=== PATIENT | male | born 1985 | race African-American/Black ===

== ENCOUNTER 2020-12-16 11:32 | Inpatient (IN) | payer MEDICAID, OTHER ==
[~2020-12-16] VITALS: Ht 175.3 cm; Wt 113.5 kg
[2020-12-16 12:44] LABS: HEMATOCRIT. 46.4 % (42.0-52.0); HEMOGLOBIN. 14.7 g/dL (14.0-18.0); MEAN CORPUSCULAR HEMOGLOBIN 23.9 pg (28.0-32.0); MEAN CORPUSCULAR VOLUME 75.4 fL (80.0-94.0); PLATELET 107 x1000/uL (130-400); RED BLOOD CELL COUNT 6.16 mill/uL (4.7-6.1); RED CELL DISTRIBUTION WIDTH 15.9 % (11.6-14.6)
[2020-12-16 13:22] LABS: PLATELET ESTIMATE SLIGHTLY DECREASED
[2020-12-16 15:09] LABS: CHLORIDE 110 mEq/L (98-107)
[2020-12-16] MEDS ORDERED: DEXTROSE 50% WATER 50ML SYRINGE IV ONE (15:30)
[2020-12-16] MEDS ORDERED: INSULIN REGULAR (HUMULIN R) 300UNITS/3ML VIAL IV ONE (15:30)
[2020-12-16] MEDS ORDERED: ZOLPIDEM TARTRATE 5MG TABLET PO PRN (16:30)
[2020-12-16] MEDS ORDERED: GUAIFENESIN 200MG/10ML SUGAR FREE UDC PO PRN (16:30)
[2020-12-16] MEDS ORDERED: ONDANSETRON HCL 4MG/2ML INJ IV PRN (16:30)
[2020-12-16] MEDS ORDERED: DOCUSATE SODIUM 100MG CAPSULE PO PRN (16:30)
[2020-12-16] MEDS ORDERED: IPRATROPIUM/ALBUTEROL 0.5-3(2.5)MG/3ML NEB NEB PRN (16:30)
[2020-12-16] MEDS ORDERED: LORAZEPAM 2MG/ML CPJ IV PRN (16:30)
[2020-12-16] MEDS ORDERED: MAGNESIUM/ALUMINUM HYDROXIDE/SIMETHICONE 30ML UDC PO PRN (16:30)
[2020-12-16] MEDS ORDERED: CLONIDINE 0.1MG TABLET PO PRN (16:30)
[2020-12-16] MEDS ORDERED: NITROGLYCERIN 0.4MG TABLET SL SL PRN (16:30)
[2020-12-16] MEDS: SODIUM CHLORIDE 0.9% 1,000 ML IV SCH (17:14)
[2020-12-16 20:19] LABS: CREATINE KINASE MB FRACTION 30.3 ng/mL (0.5-3.6)
[2020-12-16 20:27] LABS: FOLIC ACID (FOLATE) SERUM 13.4 ng/mL (>5.38)
[2020-12-16] MEDS ORDERED: SODIUM BICARBONATE 8.4% 1 MEQ/ML 50ML SYR IV NR (21:00)
[2020-12-16] MEDS: LEVETIRACETAM 500MG TABLET PO SCH (23:07)
[2020-12-16] MEDS: FAMOTIDINE 20MG TABLET PO SCH (23:07)
[2020-12-16] MEDS: ENOXAPARIN 40MG/0.4ML SYR SUBCUT SCH (23:09)
[2020-12-17 01:30] VITALS: BP 145/88
[2020-12-17] MEDS ORDERED: MIRT-118 PO (03:41)
[2020-12-17 04:00] VITALS: BP 154/87
[2020-12-17] MEDS: SODIUM CHLORIDE 0.9% 1,000 ML IV SCH ×2 (04:54→12:11)
[2020-12-17] MEDS: DILTIAZEM HCL 60MG TABLET PO SCH ×3 (06:18→17:15)
[2020-12-17 06:56] LABS: HEMATOCRIT. 43.4 % (42.0-52.0); HEMOGLOBIN. 13.8 g/dL (14.0-18.0); MEAN CORPUSCULAR HEMOGLOBIN 23.7 pg (28.0-32.0); MEAN CORPUSCULAR VOLUME 74.5 fL (80.0-94.0); MEAN PLATELET VOLUME 9.7 fl (7.4-10.4); PLATELET 87 x1000/uL (130-400); RED BLOOD CELL COUNT 5.82 mill/uL (4.7-6.1); RED CELL DISTRIBUTION WIDTH 15.6 % (11.6-14.6)
[2020-12-17 07:02] LABS: CLARITY URINE CLEAR (CLEAR); COLOR URINE YELLOW (YELLOW); KETONES URINE 1+ (NEGATIVE); LEUKOCYTE ESTERASE URINE NEGATIVE (NEGATIVE); NITRITE URINE NEGATIVE (NEGATIVE); OCCULT BLOOD URINE 3+ (NEGATIVE); PH URINE 5.5 (4.5-8.0); PROTEIN URINE 2+ (NEGATIVE); SPECIFIC GRAVITY URINE 1.023 (1.005-1.030); UROBILINOGEN URINE 0.2 E.U./dL (0.2-1.0)
[2020-12-17 07:37] LABS: CHLORIDE 115 mEq/L (98-107)
[2020-12-17 07:45] LABS: PHOSPHORUS 5.5 mg/dL (2.5-4.9)
[2020-12-17 07:50] LABS: CREATINE KINASE MB FRACTION 69.8 ng/mL (0.5-3.6)
[2020-12-17 08:00] VITALS: BP 141/94
[2020-12-17 08:18] LABS: CREATINE KINASE 9205 IU/L (39-308)
[2020-12-17 08:42] LABS: *AMPHETAMINES SCREEN URINE NEGATIVE (NEGATIVE); *BARBITURATES SCREEN URINE NEGATIVE (NEGATIVE); *BENZODIAZEPINES SCREEN URINE NEGATIVE (NEGATIVE); *COCAINE SCREEN URINE NEGATIVE (NEGATIVE)
[2020-12-17 08:43] LABS: CANNABINOID URINE SCREEN NEGATIVE (NEGATIVE); METHADONE URINE SCREEN NEGATIVE (NEGATIVE); OPIATES URINE SCREEN NEGATIVE (NEGATIVE); PHENCYCLIDINE URINE SCREEN NEGATIVE (NEGATIVE)
[2020-12-17] MEDS: CITRIC ACID/SODIUM CITRATE SOLN 15ML UDC PO SCH ×3 (10:05→17:15)
[2020-12-17] MEDS: LEVETIRACETAM 500MG TABLET PO SCH ×2 (10:06→21:51)
[2020-12-17 12:43] VITALS: BP 143/92
[2020-12-17 16:13] LABS: PLATELET ESTIMATE DECREASED
[2020-12-17 16:24] VITALS: BP 140/90
[2020-12-17 16:58] LABS: BG CARBOXYHEMOGLOBIN 0.5 % (0.5-1.5); BG DEOXYHEMOGLOBIN 3.4 % (0.0-5.0); BG FRACTION INSPIRED OXYGEN 21; BG HCO3 ACT 25.3 mmol/L (22.0-26.0); BG METHEMOGLOBIN 0.5 % (0.0-1.5); BG OXYGEN SATURATION 96.6 % (92.0-98.5); BG OXYHEMOGLOBIN 95.6 % (94.0-97.0); BG PCO2 35.4 mmHg (35.0-45.0); BG PH 7.472 (7.350-7.450); BG PO2 88.3 mmHg (75.0-100.0); BG SAMPLE SITE RIGHT RADIAL; BG TOTAL HEMOGLOBIN 14.4 g/dL (12.0-18.0); BG VENT MODE ROOM AIR
[2020-12-17] MEDS: SODIUM CHLORIDE 0.45% 1,000 ML IV SCH (17:15)
[2020-12-17 20:00] VITALS: BP 102/44
[2020-12-17] MEDS: ENOXAPARIN 40MG/0.4ML SYR SUBCUT SCH (21:00)
[2020-12-17] MEDS: FAMOTIDINE 20MG TABLET PO SCH (21:51)
[2020-12-18] VITALS: BP 107/54
[2020-12-18 04:00] VITALS: BP 110/51
[2020-12-18] MEDS: SODIUM CHLORIDE 0.45% 1,000 ML IV SCH ×2 (05:57→09:00)
[2020-12-18] MEDS: DILTIAZEM HCL 60MG TABLET PO SCH ×4 (05:57→18:48)
[2020-12-18 06:47] LABS: HEMOGLOBIN. 13.5 g/dL (14.0-18.0); MEAN CORPUSCULAR HEMOGLOBIN 23.5 pg (28.0-32.0); MEAN PLATELET VOLUME 9.5 fl (7.4-10.4); PLATELET 83 x1000/uL (130-400); RED BLOOD CELL COUNT 5.74 mill/uL (4.7-6.1); RED CELL DISTRIBUTION WIDTH 15.8 % (11.6-14.6)
[2020-12-18 07:12] LABS: CHLORIDE 118 mEq/L (98-107)
[2020-12-18 07:27] LABS: PHOSPHORUS 3.3 mg/dL (2.5-4.9)
[2020-12-18 08:00] VITALS: BP 123/82
[2020-12-18] MEDS: LEVETIRACETAM 500MG TABLET PO SCH ×2 (08:59→21:44)
[2020-12-18] MEDS: CITRIC ACID/SODIUM CITRATE SOLN 15ML UDC PO SCH (08:59)
[2020-12-18 12:00] VITALS: BP 121/60
[2020-12-18 12:40] LABS: CREATINE KINASE 32783 IU/L (39-308)
[2020-12-18] MEDS: DEXTROSE 5% WATER 1,000 ML IV SCH ×2 (13:02→21:30)
[2020-12-18 16:00] VITALS: BP 128/59
[2020-12-18 17:56] LABS: PLATELET ESTIMATE DECREASED
[2020-12-18 20:00] VITALS: BP 142/85
[2020-12-18] MEDS: ENOXAPARIN 40MG/0.4ML SYR SUBCUT SCH (21:00)
[2020-12-18] MEDS: FAMOTIDINE 20MG TABLET PO SCH (21:45)
[2020-12-19] VITALS: BP 135/73
[2020-12-19 04:00] VITALS: BP 133/75
[2020-12-19] MEDS: DEXTROSE 5% WATER 1,000 ML IV SCH ×2 (04:01→19:10)
[2020-12-19] MEDS: DILTIAZEM HCL 60MG TABLET PO SCH ×4 (06:41→19:11)
[2020-12-19 08:00] VITALS: BP 105/57
[2020-12-19 08:19] LABS: BASOPHILS % 0.3 % (0.0-2.0); EOSINOPHILS % 0.2 % (0.0-5.0); HEMATOCRIT. 41.2 % (42.0-52.0); LYMPHOCYTES % 9.8 % (20.0-50.0); MEAN CORPUSCULAR HEMOGLOBIN 23.7 pg (28.0-32.0); MEAN CORPUSCULAR VOLUME 75.2 fL (80.0-94.0); MEAN PLATELET VOLUME 10.3 fl (7.4-10.4); NEUTROPHILS % 77.7 % (40.0-76.0); PLATELET 75 x1000/uL (130-400); RED BLOOD CELL COUNT 5.48 mill/uL (4.7-6.1); RED CELL DISTRIBUTION WIDTH 15.8 % (11.6-14.6)
[2020-12-19 08:29] LABS: CHLORIDE 114 mEq/L (98-107)
[2020-12-19 08:37] LABS: PHOSPHORUS 3.1 mg/dL (2.5-4.9)
[2020-12-19] MEDS: LEVETIRACETAM 500MG TABLET PO SCH ×2 (09:15→21:42)
[2020-12-19 09:31] LABS: CREATINE KINASE 31193 IU/L (39-308)
[2020-12-19 12:00] VITALS: BP 112/62
[2020-12-19 16:00] VITALS: BP 120/63
[2020-12-19] MEDS: ARIPIPRAZOLE 2MG TABLET PO SCH (16:13)
[2020-12-19] MEDS: SERTRALINE HCL 25MG TABLET PO SCH (16:13)
[2020-12-19] MEDS: POLYVINYL ALCOHOL OPHTH DROPS 15ML BOTHEYE SCH (16:13)
[2020-12-19 20:00] VITALS: BP 111/54
[2020-12-19] MEDS: ENOXAPARIN 40MG/0.4ML SYR SUBCUT SCH (21:00)
[2020-12-19] MEDS: FAMOTIDINE 20MG TABLET PO SCH (21:42)
[2020-12-20] VITALS: BP 97/47
[2020-12-20] MEDS: DEXTROSE 5% WATER 1,000 ML IV SCH ×3 (02:45→23:27)
[2020-12-20 04:00] VITALS: BP 109/64
[2020-12-20] MEDS: DILTIAZEM HCL 60MG TABLET PO SCH ×5 (05:33→23:29)
[2020-12-20 08:00] VITALS: BP 124/63
[2020-12-20 08:51] LABS: BASOPHILS % 0.2 % (0.0-2.0); EOSINOPHILS % 0.6 % (0.0-5.0); HEMATOCRIT. 39.2 % (42.0-52.0); HEMOGLOBIN. 12.4 g/dL (14.0-18.0); LYMPHOCYTES % 10.6 % (20.0-50.0); MEAN CORPUSCULAR HEMOGLOBIN 23.7 pg (28.0-32.0); MEAN CORPUSCULAR VOLUME 74.6 fL (80.0-94.0); MEAN PLATELET VOLUME 10.4 fl (7.4-10.4); MONOCYTES % 11.1 % (2.0-8.0); NEUTROPHILS % 77.5 % (40.0-76.0); PLATELET 73 x1000/uL (130-400); RED BLOOD CELL COUNT 5.25 mill/uL (4.7-6.1); RED CELL DISTRIBUTION WIDTH 15.5 % (11.6-14.6)
[2020-12-20 09:15] LABS: CHLORIDE 107 mEq/L (98-107)
[2020-12-20] MEDS: LEVETIRACETAM 500MG TABLET PO SCH ×2 (09:33→21:27)
[2020-12-20] MEDS: SERTRALINE HCL 25MG TABLET PO SCH (09:33)
[2020-12-20] MEDS: ARIPIPRAZOLE 2MG TABLET PO SCH (09:33)
[2020-12-20] MEDS: POLYVINYL ALCOHOL OPHTH DROPS 15ML BOTHEYE SCH ×3 (09:34→18:05)
[2020-12-20 09:42] LABS: PHOSPHORUS 3.7 mg/dL (2.5-4.9)
[2020-12-20 12:00] VITALS: BP 135/61
[2020-12-20 13:47] LABS: CREATINE KINASE 22242 IU/L (39-308)
[2020-12-20 16:00] VITALS: BP 109/62
[2020-12-20] MEDS: ACETAMINOPHEN 325MG TABLET PO PRN (16:16)
[2020-12-20 20:00] VITALS: BP 106/68
[2020-12-20] MEDS: ENOXAPARIN 40MG/0.4ML SYR SUBCUT SCH (21:00)
[2020-12-20] MEDS: FAMOTIDINE 20MG TABLET PO SCH (21:27)
[2020-12-21] VITALS: BP 108/63
[2020-12-21 04:00] VITALS: BP 120/80
[2020-12-21] MEDS: DILTIAZEM HCL 60MG TABLET PO SCH ×3 (05:14→17:12)
[2020-12-21 07:59] LABS: CHLORIDE 106 mEq/L (98-107)
[2020-12-21 08:00] VITALS: BP 120/67
[2020-12-21 08:11] LABS: BASOPHILS % 0.3 % (0.0-2.0); HEMATOCRIT. 39.7 % (42.0-52.0); HEMOGLOBIN. 12.5 g/dL (14.0-18.0); LYMPHOCYTES % 11.5 % (20.0-50.0); MEAN CORPUSCULAR HEMOGLOBIN 23.3 pg (28.0-32.0); MEAN CORPUSCULAR VOLUME 74.3 fL (80.0-94.0); NEUTROPHILS % 80.2 % (40.0-76.0); RED BLOOD CELL COUNT 5.34 mill/uL (4.7-6.1); RED CELL DISTRIBUTION WIDTH 15.1 % (11.6-14.6)
[2020-12-21] MEDS: SERTRALINE HCL 25MG TABLET PO SCH (08:54)
[2020-12-21] MEDS: ARIPIPRAZOLE 2MG TABLET PO SCH (08:54)
[2020-12-21] MEDS: LEVETIRACETAM 500MG TABLET PO SCH ×2 (08:54→21:06)
[2020-12-21] MEDS: POLYVINYL ALCOHOL OPHTH DROPS 15ML BOTHEYE SCH ×3 (08:54→16:08)
[2020-12-21] MEDS: DEXTROSE 5% WATER 1,000 ML IV SCH (08:55)
[2020-12-21] MEDS: ACETAMINOPHEN 325MG TABLET PO PRN ×2 (09:52→16:59)
[2020-12-21 12:00] VITALS: BP 109/51
[2020-12-21 12:12] LABS: CLARITY URINE CLEAR (CLEAR); COLOR URINE DARK YELLOW (YELLOW); KETONES URINE NEGATIVE (NEGATIVE); LEUKOCYTE ESTERASE URINE TRACE (NEGATIVE); NITRITE URINE NEGATIVE (NEGATIVE); OCCULT BLOOD URINE 2+ (NEGATIVE); PROTEIN URINE 2+ (NEGATIVE); SPECIFIC GRAVITY URINE 1.031 (1.005-1.030)
[2020-12-21 13:48] LABS: MEAN PLATELET VOLUME 9.8 fl (7.4-10.4); PLATELET 77 x1000/uL (130-400)
[2020-12-21 16:00] VITALS: BP 114/79
[2020-12-21 20:00] VITALS: BP 122/76
[2020-12-21] MEDS ORDERED: VANCOMYCIN 2,000 MG in DEXT 5% WATER 500 ML IV NR (20:00)
[2020-12-21] MEDS: PIPERACILLIN/TAZOBACTAM 3.375 G in DEXTROSE 5% WATER 50 ML IV SCH (20:38)
[2020-12-21] MEDS: ENOXAPARIN 40MG/0.4ML SYR SUBCUT SCH (21:00)
[2020-12-21] MEDS: FAMOTIDINE 20MG TABLET PO SCH (21:06)
[2020-12-22] VITALS: BP 136/65
[2020-12-22] MEDS: DILTIAZEM HCL 60MG TABLET PO SCH ×5 (00:11→21:48)
[2020-12-22] MEDS: DEXTROSE 5% WATER 1,000 ML IV SCH (00:17)
[2020-12-22 04:00] VITALS: BP 137/65
[2020-12-22] MEDS: PIPERACILLIN/TAZOBACTAM 3.375 G in DEXTROSE 5% WATER 50 ML IV SCH ×3 (05:41→21:38)
[2020-12-22 06:38] LABS: BASOPHILS % 0.3 % (0.0-2.0); EOSINOPHILS % 1.3 % (0.0-5.0); HEMATOCRIT. 40.8 % (42.0-52.0); HEMOGLOBIN. 13.1 g/dL (14.0-18.0); LYMPHOCYTES % 10.7 % (20.0-50.0); MEAN CORPUSCULAR HEMOGLOBIN 23.8 pg (28.0-32.0); MEAN CORPUSCULAR VOLUME 73.8 fL (80.0-94.0); MEAN PLATELET VOLUME 9.9 fl (7.4-10.4); NEUTROPHILS % 77.7 % (40.0-76.0); PLATELET 110 x1000/uL (130-400); RED BLOOD CELL COUNT 5.52 mill/uL (4.7-6.1)
[2020-12-22 07:24] LABS: CHLORIDE 103 mEq/L (98-107)
[2020-12-22 07:34] LABS: PHOSPHORUS 3.4 mg/dL (2.5-4.9)
[2020-12-22 08:00] VITALS: BP 114/61
[2020-12-22 08:07] LABS: CREATINE KINASE 6211 IU/L (39-308)
[2020-12-22] MEDS: ARIPIPRAZOLE 2MG TABLET PO SCH (09:13)
[2020-12-22] MEDS: SERTRALINE HCL 50MG TABLET PO SCH (09:13)
[2020-12-22] MEDS: POLYVINYL ALCOHOL OPHTH DROPS 15ML BOTHEYE SCH ×3 (09:13→17:24)
[2020-12-22] MEDS: LEVETIRACETAM 500MG TABLET PO SCH ×2 (09:13→21:39)
[2020-12-22] MEDS: VANCOMYCIN 1250MG in DEXTROSE 5% WATER 250ML IV SCH ×2 (09:14→21:38)
[2020-12-22 12:00] VITALS: BP 117/77
[2020-12-22 16:00] VITALS: BP 142/68
[2020-12-22] MEDS: ACETAMINOPHEN 325MG TABLET PO PRN (17:24)
[2020-12-22 20:00] VITALS: BP 129/74
[2020-12-22] MEDS: ENOXAPARIN 40MG/0.4ML SYR SUBCUT SCH ×2 (21:00→21:48)
[2020-12-22] MEDS: SODIUM CHLORIDE 0.9% 1,000 ML IV SCH (21:38)
[2020-12-22] MEDS: FAMOTIDINE 20MG TABLET PO SCH (21:39)
[2020-12-23] VITALS: BP 116/69
[2020-12-23 04:00] VITALS: BP 139/69
[2020-12-23] MEDS: PIPERACILLIN/TAZOBACTAM 3.375 G in DEXTROSE 5% WATER 50 ML IV SCH ×3 (06:00→21:57)
[2020-12-23] MEDS: DILTIAZEM HCL 60MG TABLET PO SCH ×4 (06:00→21:57)
[2020-12-23] MEDS: SODIUM CHLORIDE 0.9% 1,000 ML IV SCH (06:01)
[2020-12-23 06:33] LABS: HEMOGLOBIN. 12.9 g/dL (14.0-18.0); MEAN CORPUSCULAR HEMOGLOBIN 23.8 pg (28.0-32.0); MEAN CORPUSCULAR VOLUME 73.9 fL (80.0-94.0); MEAN PLATELET VOLUME 9.9 fl (7.4-10.4); PLATELET 145 x1000/uL (130-400); RED BLOOD CELL COUNT 5.41 mill/uL (4.7-6.1); RED CELL DISTRIBUTION WIDTH 15.2 % (11.6-14.6)
[2020-12-23 06:36] LABS: CHLORIDE 103 mEq/L (98-107)
[2020-12-23 06:42] LABS: PHOSPHORUS 3.5 mg/dL (2.5-4.9)
[2020-12-23 08:00] VITALS: BP 130/70
[2020-12-23] MEDS: VANCOMYCIN 1250MG in DEXTROSE 5% WATER 250ML IV SCH ×2 (09:13→21:57)
[2020-12-23] MEDS: ARIPIPRAZOLE 2MG TABLET PO SCH (09:13)
[2020-12-23] MEDS: LEVETIRACETAM 500MG TABLET PO SCH ×2 (09:13→21:56)
[2020-12-23] MEDS: SERTRALINE HCL 50MG TABLET PO SCH (10:37)
[2020-12-23] MEDS: POLYVINYL ALCOHOL OPHTH DROPS 15ML BOTHEYE SCH ×3 (10:38→22:00)
[2020-12-23 12:00] VITALS: BP 115/66
[2020-12-23] MEDS: ACETAMINOPHEN 325MG TABLET PO PRN (15:21)
[2020-12-23 16:00] VITALS: BP 114/65
[2020-12-23 17:06] LABS: PLATELET ESTIMATE NORMAL
[2020-12-23 20:00] VITALS: BP 122/70
[2020-12-23] MEDS: ENOXAPARIN 30MG/0.3ML SYR SUBCUT SCH (21:00)
[2020-12-23] MEDS: FAMOTIDINE 20MG TABLET PO SCH (21:57)
[2020-12-24] VITALS: BP 118/66
[2020-12-24 04:00] VITALS: BP 112/70
[2020-12-24] MEDS: DILTIAZEM HCL 60MG TABLET PO SCH ×2 (06:00→12:00)
[2020-12-24] MEDS: PIPERACILLIN/TAZOBACTAM 3.375 G in DEXTROSE 5% WATER 50 ML IV SCH ×2 (06:44→14:00)
[2020-12-24 06:53] LABS: BASOPHILS % 0.2 % (0.0-2.0); EOSINOPHILS % 0.9 % (0.0-5.0); HEMATOCRIT. 40.6 % (42.0-52.0); HEMOGLOBIN. 12.7 g/dL (14.0-18.0); LYMPHOCYTES % 14.4 % (20.0-50.0); MEAN CORPUSCULAR HEMOGLOBIN 23.1 pg (28.0-32.0); MEAN CORPUSCULAR VOLUME 74.2 fL (80.0-94.0); MONOCYTES % 10.5 % (2.0-8.0); RED BLOOD CELL COUNT 5.48 mill/uL (4.7-6.1); RED CELL DISTRIBUTION WIDTH 15.3 % (11.6-14.6)
[2020-12-24 07:20] LABS: CHLORIDE 104 mEq/L (98-107)
[2020-12-24 07:35] LABS: PHOSPHORUS 3.6 mg/dL (2.5-4.9)
[2020-12-24 08:00] VITALS: BP 112/70
[2020-12-24] MEDS: ENOXAPARIN 30MG/0.3ML SYR SUBCUT SCH ×2 (09:00→09:11)
[2020-12-24] MEDS: VANCOMYCIN 1250MG in DEXTROSE 5% WATER 250ML IV SCH (09:09)
[2020-12-24] MEDS: POLYVINYL ALCOHOL OPHTH DROPS 15ML BOTHEYE SCH ×2 (09:10→13:00)
[2020-12-24] MEDS: SERTRALINE HCL 50MG TABLET PO SCH (09:10)
[2020-12-24] MEDS: LEVETIRACETAM 500MG TABLET PO SCH (09:10)
[2020-12-24] MEDS: ARIPIPRAZOLE 2MG TABLET PO SCH (09:10)
[2020-12-24 10:31] LABS: PLATELET 207 x1000/uL (130-400)
[2020-12-24 12:00] VITALS: BP 115/75
[2020-12-24 13:11] VITALS: BP 115/75
== END 2020-12-24 15:00 | disposition home or self-care (01) | DRG 351 ==
LOC: ER 11:32 → 6WST 15:49 → ENRESERV 23:38
PROVIDERS: ADMIT Internal Medicine; ATTEND Internal Medicine
DX: M62.82 Rhabdomyolysis (principal); N17.0 Acute kidney failure with tubular necrosis; G92.8 Other toxic encephalopathy; D69.6 Thrombocytopenia, unspecified; E87.2 Acidosis; E88.09 Other disorders of plasma-protein metabolism, not elsewhere classified; E87.0 Hyperosmolality and hypernatremia; E87.5 Hyperkalemia; F33.1 Major depressive disorder, recurrent, moderate; R73.03 Prediabetes; E66.9 Obesity, unspecified; G40.909 Epilepsy, unspecified, not intractable, without status epilepticus; Z82.49 Family history of ischemic heart disease and other diseases of the circulatory system; Z79.899 Other long term (current) drug therapy; Z68.37 Body mass index [BMI] 37.0-37.9, adult
CPT/HCPCS: 36415; 36600; 71045; 73200; 74176; 76770; 80048; 80053; 80061; 80202; 80305; 80320; 81003; 82375; 82550; 82553; 82570; 82607; 82746; 82805; 83036; 83540; 83550; 83735; 84100; 84156; 84439; 84443; 84484; 85025; 87186; 93005; 93922; 93970; 93971; 97116; 97162; 97166; 97530; 97535; 99291; A6261; C1893; J1650; J1815; J2405; J2543; J3370; J3490; J7030; J7060; J7070; A4315; G0480

== ENCOUNTER 2021-02-13 06:05 | Emergency (ER) | payer OTHER ==
[~2021-02-13] VITALS: Ht 175.3 cm; Wt 82.0 kg
[2021-02-13 07:45] VITALS: BP 118/64
[2021-02-13 08:23] LABS: BASOPHILS % 0.8 % (0.0-2.0); EOSINOPHILS % 0.3 % (0.0-5.0); HEMATOCRIT. 36.3 % (42.0-52.0); LYMPHOCYTES % 11.9 % (20.0-50.0); MEAN CORPUSCULAR HEMOGLOBIN 24.6 pg (28.0-32.0); MEAN CORPUSCULAR VOLUME 74.7 fL (80.0-94.0); MEAN PLATELET VOLUME 9.2 fl (7.4-10.4); MONOCYTES % 10.8 % (2.0-8.0); NEUTROPHILS % 76.2 % (40.0-76.0); PLATELET 194 x1000/uL (130-400); RED BLOOD CELL COUNT 4.86 mill/uL (4.7-6.1); RED CELL DISTRIBUTION WIDTH 17.1 % (11.6-14.6)
[2021-02-13 08:28] LABS: CHLORIDE 105 mEq/L (98-107)
[2021-02-13 08:33] LABS: ETHANOL BLOOD < 10 mg/dL
== END 2021-02-13 10:00 | disposition home or self-care (01) ==
LOC: ER 06:13
DX: R45.1 Restlessness and agitation (principal); R53.1 Weakness; R42 Dizziness and giddiness; F17.290 Nicotine dependence, other tobacco product, uncomplicated; F15.10 Other stimulant abuse, uncomplicated; F32.9 Major depressive disorder, single episode, unspecified
CPT/HCPCS: 36415; 80053; 80307; 80320; 80329; 82962; 85025; 99283; Z7610; G0480

== ENCOUNTER 2021-05-21 07:43 | Emergency (ER) | payer SELFPAY ==
[~2021-05-21] VITALS: Ht 177.8 cm; Wt 91.0 kg
[2021-05-21] MEDS ORDERED: OLANZAPINE 10MG TABLET PO SCH (09:45)
[2021-05-21] MEDS ORDERED: LORAZEPAM 1MG TABLET PO ONE (09:45)
[2021-05-21] MEDS ORDERED: SODIUM CHLORIDE 0.9% 1,000 ML IV ONE (11:00)
[2021-05-21 12:32] LABS: BASOPHILS % 0.8 % (0.0-2.0); EOSINOPHILS % 0.4 % (0.0-5.0); HEMATOCRIT. 38.5 % (42.0-52.0); HEMOGLOBIN. 12.5 g/dL (14.0-18.0); LYMPHOCYTES % 21.9 % (20.0-50.0); MEAN CORPUSCULAR HEMOGLOBIN 23.7 pg (28.0-32.0); MEAN CORPUSCULAR VOLUME 73.4 fL (80.0-94.0); MEAN PLATELET VOLUME 8.9 fl (7.4-10.4); MONOCYTES % 10.9 % (2.0-8.0); PLATELET 217 x1000/uL (130-400); RED BLOOD CELL COUNT 5.25 mill/uL (4.7-6.1)
[2021-05-21 12:41] LABS: CHLORIDE 109 mEq/L (98-107)
[2021-05-21 12:45] LABS: ETHANOL BLOOD < 10 mg/dL
[2021-05-21 16:57] LABS: CLARITY URINE CLEAR (CLEAR); COLOR URINE YELLOW (YELLOW); KETONES URINE NEGATIVE (NEGATIVE); LEUKOCYTE ESTERASE URINE NEGATIVE (NEGATIVE); NITRITE URINE NEGATIVE (NEGATIVE); OCCULT BLOOD URINE NEGATIVE (NEGATIVE); PROTEIN URINE NEGATIVE (NEGATIVE); SPECIFIC GRAVITY URINE 1.012 (1.005-1.030)
[2021-05-21 17:18] LABS: *AMPHETAMINES SCREEN URINE PRESUMTIVE POSITIVE (NEGATIVE); *BARBITURATES SCREEN URINE NEGATIVE (NEGATIVE); METHADONE URINE SCREEN NEGATIVE (NEGATIVE); OPIATES URINE SCREEN NEGATIVE (NEGATIVE)
[2021-05-21 17:19] LABS: *BENZODIAZEPINES SCREEN URINE NEGATIVE (NEGATIVE); CANNABINOID URINE SCREEN NEGATIVE (NEGATIVE); PHENCYCLIDINE URINE SCREEN NEGATIVE (NEGATIVE)
[2021-05-21 17:28] LABS: *COCAINE SCREEN URINE NEGATIVE (NEGATIVE)
[2021-05-21 18:29] VITALS: BP 128/80
== END 2021-05-21 20:10 | disposition home or self-care (01) ==
LOC: ER 07:43
DX: R45.1 Restlessness and agitation (principal); F23 Brief psychotic disorder; R56.9 Unspecified convulsions; F32.9 Major depressive disorder, single episode, unspecified
CPT/HCPCS: 36415; 80053; 80305; 80320; 81003; 85025; 96360; 99285; J7030; G0480